=== PATIENT | male | born 1985 | race Asian ===

== ENCOUNTER 2017-08-16 19:41 | Emergency (ER) | payer OTHER ==
[~2017-08-16] VITALS: Ht 175.3 cm; Wt 68.0 kg
[2017-08-16 19:45] VITALS: BP_SYST 142
--- NOTE | 2017-08-16 19:45 | NUR ---
Patient triaged and placed in waiting room. VSS and patient appears in no acute distress at this time. Awaiting available bed, and MD notified of need for MSE.
--- NOTE | 2017-08-16 20:44 | NUR ---
Patient called for bed placement no answer, unable to find patient in ED waiting room.
--- NOTE | 2017-08-16 20:50 | NUR ---
Patient unable to be found in waiting room, when called for placement.
--- NOTE | 2017-08-16 20:55 | NUR ---
Patient called three times, not found in ED waiting room. Patient LWBS.
== END 2017-08-16 20:55 | disposition left against medical advice (07) ==
LOC: SED 19:41
DX: M79.89 Other specified soft tissue disorders (principal); Z53.21 Procedure and treatment not carried out due to patient leaving prior to being seen by health care provider